=== PATIENT | female | born 1980 | race Caucasian/White ===

== ENCOUNTER 2019-09-24 08:42 | Emergency (ER) | payer MEDICAID, SELFPAY ==
[~2019-09-24] VITALS: Ht 170.2 cm; Wt 79.4 kg
[~2019-09-24 08:42] MED LIST: MIC5 PO
--- NOTE | 2019-09-24 08:50 | NUR ---
PT JONELLE ALS TO ER BED 10. RN EVALUATING AT BEDSIDE.
[2019-09-24 09:01] VITALS: BP 135/86
--- NOTE | 2019-09-24 09:05 | NUR ---
39 Y/O FEMALE BIBA C/O SOB + DRY COUGH + LOSS OF TASTE/SMELL X2 DAYS + CHILLS, FEVER. PT WAS SEEN AT [facility] [place]DAY AND WAS DX WITH PNEUMONIA. RESP EVEN AND TACHY. PT STATES SHE FEELS LIKE SHE CANT CATCH HER BREATH, AND IS HAVING A DRY COUGH. LUNG SOUNDS CLEAR IN BILAT LOBES. SKIN COOL/DIAPHORETIC PT STATES SHE TOOK A TYLENOL TWO HOURS AGO. DENIES ANY CONTACT WITH COVID POSITIVE PATIENTS. VSS. SP02 98% ON 2LNC. AAOX4. ABLE TO AMBULATE TO BED. DENIES ANY CHEST PAIN, N/V/D.
[2019-09-24 09:39] LABS: BASOPHILS % (AUTO) 0.5 % (0.0-2.0); HEMATOCRIT 36.1 % (36-48); HEMOGLOBIN 12.1 g/dL (12.0-16.0); LYMPHOCYTES # (AUTO) 1.6 K/uL (2.5-16.5); LYMPHOCYTES % (AUTO) 19.5 % (20.5-51.1); MEAN CORPUSCULAR HEMOGLOBIN 30 pg (27-31); MEAN CORPUSCULAR HGB CONC 34 g/dL (33-37); MEAN CORPUSCULAR VOLUME 89.1 fL (80-94); MONOCYTES # (AUTO) 0.2 K/uL (0.8-1.0); MONOCYTES % (AUTO) 2.6 % (1.7-9.3); NEUTROPHILS # (AUTO) 6.5 K/uL (1.8-7.7); NEUTROPHILS % (AUTO) 77.4 % (42.2-75.2); PLATELET COUNT (AUTO) 176 K/uL (140-450); RED BLOOD CELL COUNT(AUTO) 4.05 MIL/uL (4.20-5.40); RED CELL DISTRIBUTION WIDTH 12.2 % (11.6-13.7); WHITE BLOOD COUNT (AUTO) 8.4 K/uL (4.8-10.8)
[2019-09-24 09:50] LABS: PROTHROMBIN TIME 9.5 secs (10.8-13.4)
[2019-09-24 09:53] LABS: LACTATE DEHYDROGENASE 299 U/L (81-234)
[2019-09-24 09:54] LABS: ALBUMIN 2.5 g/dL (3.4-5.0); CARBON DIOXIDE 28.2 mmol/L (21-32); CREATININE 0.9 mg/dL (0.6-1.3); POTASSIUM 4.2 mmol/L (3.5-5.1); TOTAL BILIRUBIN 0.5 mg/dL (0.0-1.0)
[2019-09-24 10:17] LABS: C-REACTIVE PROTEIN QUANT 11.3 mg/dL (0.0-0.9)
--- NOTE | 2019-09-24 10:19 | NUR ---
PT IS RESTING IN BED, VSS, PT IS ON 2L NC, STATES BREATHING IS STILL DIFFICULT. SP02: 97%. ALL NEEDS MET AT THIS TIME
[2019-09-24 11:00] LABS: RSV NEGATIVE (NEGATIVE)
--- NOTE | 2019-09-24 11:48 | NUR ---
PT IS RESTING IN BED, VSS, PT IS ON 2L NC, STATES BREATHING IS STILL DIFFICULT. SP02: 98%. ALL NEEDS MET AT THIS TIME
[2019-09-24 12:12] VITALS: BP 114/71
--- NOTE | 2019-09-24 12:13 | NUR ---
Patient discharged with v/s stable. Written and verbal after care instructions given and explained. Patient alert, oriented and verbalized understanding of instructions. Ambulatory with steady gait. All questions addressed prior to discharge. ID band removed. Patient advised to follow up with PMD. Rx of TESSALON PERLES 100MG AND AZITHROMYCIN 250MG AND TYLENOL 325MG given. Patient educated on indication of medication including possible reaction and side effects. Opportunity to ask questions provided and answered.
== END 2019-09-24 12:13 | disposition home or self-care (01) ==
LOC: MED 08:42
DX: J12.9 Viral pneumonia, unspecified (principal); Z20.828 Contact with and (suspected) exposure to other viral communicable diseases; E11.9 Type 2 diabetes mellitus without complications; Z79.899 Other long term (current) drug therapy
CPT/HCPCS: 36415; 36600; 71045; 80053; 82550; 82728; 82803; 83605; 83615; 83880; 84484; 85025; 85379; 85384; 85610; 85730; 86140; 87420; 87804; 99285; Q0092

== ENCOUNTER 2023-12-08 23:00 | Emergency (ER) | payer MEDICAID, OTHER ==
[~2023-12-08] VITALS: Ht 160 cm; Wt 85.7 kg
[~2023-12-08 23:00] MED LIST changes: +GLYB-200 PO; -MIC5 PO
[2023-12-08 23:09] VITALS: BP 136/70; PULSE 100; RESP 20; TEMP 97.9; O2SAT 100
[2023-12-08] MEDS ORDERED: KETOROLAC 30 MG/ML VIAL IM ONE (23:50)
[2023-12-09] MEDS: ACETAMINOPHEN EXTRA STRENGTH 500 MG TAB PO ONE (00:11)
[2023-12-09] MEDS: MORPHINE SULFATE 4 MG/ML SYR IM ONE (00:13)
[2023-12-09] MEDS ORDERED: ACET500T99 PO (01:22)
[2023-12-09] MEDS ORDERED: IBUP-1842 PO (01:22)
[2023-12-09 01:47] VITALS: BP 136/70; PULSE 100; RESP 20; TEMP 97.9; O2SAT 100
== END 2023-12-09 01:45 | disposition home or self-care (01) ==
LOC: MED 23:00
DX: S60.511A Abrasion of right hand, initial encounter (principal); M25.521 Pain in right elbow; M79.631 Pain in right forearm; E11.9 Type 2 diabetes mellitus without complications; Z79.899 Other long term (current) drug therapy; W05.1XXA Fall from non-moving nonmotorized scooter, initial encounter; Y93.89 Activity, other specified; Y92.410 Unspecified street and highway as the place of occurrence of the external cause; Y99.8 Other external cause status
CPT/HCPCS: 29125; 73080; 73090; 73130; 90471; 90715; 96372; 99284; J1885; J2270; Q0092